=== PATIENT | male | born 1940 | race Caucasian/White ===

== ENCOUNTER → 2017-03-18 | Outpatient (CLI) | payer MEDICARE, OTHER ==
[~2017-03-18] MED LIST: ASPI325T6 PO; ASPIRIN 81M81 MG/TA2 PO; LIPITOR 40MG TA40 MG PO; MILK OF MA400 MG/52 PO; NEXIUM 40MG40 MG PO; NORCO 325 MG-7.1 TAB PO; PRINIVIL10 MG PO; PULMICORT180 MCG/Ac IH; ROXICODONE 55 MG/TAB PO; SENOKOT8.6 MG PO; TYLENOL 500MG500 MG PO; ULTRAM 50MG TAB50 MG PO
== END ==
LOC: COL.RAD 09:19
DX: M51.26 Other intervertebral disc displacement, lumbar region (principal); M48.06 Spinal stenosis, lumbar region
CPT/HCPCS: A9585